=== PATIENT | female | born 1950 | race Caucasian/White ===

== ENCOUNTER → 2017-03-15 | Day surgery (SDC) | payer MEDICARE ==
[~2017-03-15] VITALS: Ht 162.6 cm; Wt 58.3 kg
[~2017-03-15] MED LIST: *MEPERIDINE 25 MG INJ VIAL PERIprocedural Use ONLY ONE; BUPIVACAINE HCL PF 0.5% 30 ML VIAL ONE; CHLORHEXIDINE GLUCONATE 2 % 1 PACK (2 CLOTHS) TOPICAL PRN; DEXAMETHASONE SOD PHOS 4 MG/ML VIAL IV ONE; DO NOT ADM ANY ANTICOAGULANT DRUGS PRN; INSULIN HUMAN REGULAR 1,000 UNITS/10 ML VIAL SQ PRN; LACTATED RINGER'S 1000 ML IV PRN; LIDOCAINE HCL 1% PF 5 ML SYRINGE OTHER ONE; METOPROLOL TARTRATE 25 MG TAB PO PRN; MIDAZOLAM HCL 2 MG/2 ML VIAL ONE; ONDANSETRON HCL 4 MG/2 ML VIAL IV PUSH ONE; PERC5TAB12 PO; POVIDONE IODINE 5% (ANTISEPSIS KIT) 4 APPLICATIONS EACH NARE PRN; PROPOFOL 200 MG/20 ML AMP IV ONE; SODIUM CHLORID 0.9% 500 ML IV PRN; ceFAZolin INJ 1,000 MG VIAL IV ONE; ceFAZolin INJ 1,000 MG VIAL IV PUSH ONE
[2017-03-15 08:59] LABS: AUTOMATED NEUTROPHIL # 3.6 TH/MM3 (1.8-7.7); BASOPHIL % 0.9 % (0.0-2.0); EOSINOPHIL # 0.1 TH/MM3 (0-0.4); EOSINOPHIL % 1.4 % (0.0-4.0); HEMATOCRIT 42.4 % (35.0-46.0); HEMOGLOBIN 14.1 GM/DL (11.6-15.3); LYMPH % 21.4 % (9.0-44.0); LYMPHOCYTE # 1.1 TH/MM3 (1.0-4.8); MEAN CORPUSCULAR HEMOGLOBIN 29.3 PG (27.0-34.0); MEAN CORPUSCULAR HGB CONC 33.3 % (32.0-36.0); MEAN PLATELET VOLUME 7.8 FL (7.0-11.0); MONO % 6.8 % (0.0-8.0); MONOCYTE # 0.3 TH/MM3 (0-0.9); NEUT % 69.5 % (16.0-70.0); PLATELET COUNT 288 TH/MM3 (150-450); RED BLOOD COUNT 4.82 MIL/MM3 (4.00-5.30); RED CELL DISTRIBUTION WIDTH 13.4 % (11.6-17.2); WHITE BLOOD COUNT 5.2 TH/MM3 (4.0-11.0)
[2017-03-15 09:07] LABS: PROTHROMBIN TIME - PATIENT 10.3 SEC (9.8-11.6)
--- NOTE | 2017-03-15 09:22 | RADRPT ---
EXAM DATE/TIME: 03/15/2017 08:50 [place] COMPARISON: No previous studies available for comparison. INDICATIONS : Evaluate for pneumonia,pneumothorax or communicable diseasea pre op for vercose veins MEDICAL HISTORY : None. SURGICAL HISTORY : None. ENCOUNTER: Initial ACUITY: 1 day PAIN SCORE: 0/10 LOCATION: Bilateral chest FINDINGS: A single view of the chest demonstrates the lungs to be symmetrically aerated without evidence of mas s, infiltrate or effusion. The cardiomediastinal contours are unremarkable. Osseous structures are intact. A scoliotic curvature to the thoracolumbar spine. CONCLUSION: No acute disease. Jani Cheng Jr., MD on March 15, 2017 at 9:17 Board Certified Radiologist. This report was verified electronically.
[2017-03-15 09:28] LABS: BICARBONATE 25.5 MEQ/L (21.0-32.0); CALCIUM 9.4 MG/DL (8.5-10.1); CREATININE 0.79 MG/DL (0.50-1.00)
[2017-03-15 17:23] VITALS: BP 162/90; PULSE 79; RESP 16; TEMP 98.6; O2SAT 100
--- NOTE | 2017-03-15 22:59 | EKG ---
Date Performed: 03/15/2017 Time Performed: 08:47:55 PTAGE: 66 years EKG: Sinus rhythm NORMAL ECG NO PREVIOUS TRACING DOCTOR: Tomás Ibrahim Interpretating Date/Time 03/15/2017 22:58:27
--- NOTE | 2017-03-19 08:44 | MP ---
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 OPERATION: Limited saphenous vein stripping ligation. SURGEON: Марина Romo M.D. ANESTHESIA: General. ESTIMATED BLOOD LOSS: 20 cc. DESCRIPTION OF THE PROCEDURE IN DETAIL: The patient was prepped and draped in the usual fashion and placed on the table in the reverse Trendelenburg filling up the veins. The veins were previously marked with indelible marker on the skin in the preop area. Now a series of very tiny incisions was made with the 15 blade over the veins and then these were isolated with small mosquito hemostats and two Vicryl ties placed around each. This was done serially in about twelve or fourteen little spots, and when this was done, all the veins were connected. Now removal of the veins was started. The veins were now removed from one incision to the other with hemostats ligating the remaining vessels. This was continued down toward the ankle until everything was gone. The area was now irrigated with saline. The incisions were closed with 4-0 Monocryl and Benzoin and Steri-Strips were applied and dressing applied using HÉCTOR. The patient tolerated the procedure well. Марина THOMPSON/GIULIA /5:19 PM /8:41 AM
== END | disposition home or self-care (01) ==
LOC: HSDC 08:05
PROVIDERS: ATTEND Surgery
DX: I83.022 Varicose veins of left lower extremity with ulcer of calf (principal); I83.028 Varicose veins of left lower extremity with ulcer other part of lower leg; Z01.810 Encounter for preprocedural cardiovascular examination
CPT/HCPCS: 01520; 37765; 71045; 80048; 85025; 85610; 93005; J0690; J1100; J2175; J2250; J2405